=== PATIENT | female | born 1935 | race Caucasian/White ===

== ENCOUNTER 2021-08-07 14:30 | Emergency (ER) | payer MEDICARE, SELFPAY ==
--- NOTE | ~2021-08-07 | CT_ITS ---
EXAMINATION: CT HEAD WITHOUT CONTRAST CLINICAL INFORMATION: Mental status change COMPARISON: None TECHNIQUE: Contiguous axial imaging was performed from the skull base to vertex without intravenous administration of contrast. This CT examination was performed using dose optimization techniques as appropriate, variously including the following: *Automated exposure control *Adjustment of mA and/or kV according to patient size (this includes techniques or standardized protocols for targeted exams where dose is matched to indication/reason for exam; i.e. extremities or head) *Use of iterative reconstruction technique DLP: 570 mGy-cm FINDINGS: There is no evidence of an extra-axial collection. There is no evidence of intra-axial or extra-axial hemorrhage. The ventricles and extra-axial CSF spaces are prominent suggestive of generalized atrophy. There is nonspecific periventricular white matter disease. There are bilateral basal ganglia pulmonary infarcts. No previous exams are available for comparison these are of indeterminate age. No mass or mass effect is seen. Review of bone windows is normal. No skull fracture is seen. Visualized paranasal sinuses, mastoid air cells and middle ears are clear. CT/CT head/brain wo con IMPRESSION: Generalized atrophy and nonspecific periventricular white matter disease. Bilateral basal ganglia lacunar infarcts.
--- NOTE | ~2021-08-07 | XR_ITS ---
EXAMINATION: XR CHEST CLINICAL INFORMATION: Mental status change COMPARISON: None TECHNIQUE: 2 views of the chest were obtained. FINDINGS: The cardiac silhouette is enlarged. 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 Hilar and mediastinal contours are unremarkable. There is question of a 5 mm retrosternal nodule seen on the lateral view. The lungs are otherwise clear. There is no pleural effusion or pneumothorax. There are degenerative changes of the spine. There may be old posterior left seventh and eighth rib fractures. There are surgical clips projecting over the right axilla. XR/XR chest 2V IMPRESSION: Enlarged cardiac silhouette. Question 5 mm retrosternal pulmonary nodule seen on the lateral view.
--- NOTE | 2021-08-07 14:34 | PC.NURSE ---
Contact made by Selene at [facility] in [place] [phone], Pt was medicated with 2.5mg Zyprexa and Ativan, Bendryl, Haldol Gel prior to departure of home by minesweeping officer Reason to send to [facility], is to evaluate competency because she has been refusing all help at home by aids/staff/ and Meds Per Selene, Pt is on section 12 even though she is not SI/HI, 12 signed by hospice medical direal Pastor Pena DR.
[2021-08-07 14:38] VITALS: BP 161/97; PULSE 97; RESP 18; TEMP 36.6; O2SAT 96; BMI 18.8
--- NOTE | 2021-08-07 15:07 | ECG_ITS ---
Test Reason : FAILURE TO THRIVE Blood Pressure : / mmHG Vent. Rate : 082 BPM Atrial Rate : 000 BPM P-R Int : 000 ms QRS Dur : 114 ms QT Int : 400 ms P-R-T Axes : 000 088 241 degrees QTc Int : 467 ms Atrial fibrillation Incomplete right bundle branch block Septal infarct , age undetermined ST & T wave abnormality, consider inferior ischemia ST & T wave abnormality, consider anterolateral ischemia Abnormal ECG No previous ECGs available Referred By: Zoltan Tay Electronically Signed By:SAMANTHA CUELLO
--- NOTE | 2021-08-07 15:10 | ED_ITS ---
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 She has been incontinent of both stool and urine and has not let caregivers changer or clean her. She has also been refusing medications for several weeks. She is on hospice for breast cancer, apparently untreatable. She has been on hospice for the past 9 months. Today she was sent to the emergency department with a request for geriatric psych consultation and possibly hospitalization for stabilization and medication changes to allow her to return home and be cared for appropriately. No other recent health status changes that she knows of. The patient herself states she is unsure why she is here. She adamantly states that she is able to take care of herself and has been maintaining hygiene and is able to ambulate and get to the bathroom without difficulty. This is apparently not accurate. She states the reason she does not want them to clean her is because she has known him for years and does not want them seeing her private parts. She is unable to state why she is refusing to take her medications. She does not know for how long she has been refusing medications. Of note, they were able to sprinkle Zyprexa on a bagel which he ate prior to coming to the emergency department. <Zoltan Tay MD - Last Filed: 08/07/21 17:17> Related Data Home medications: Home Medications Medication Instructions Recorded Confirmed acetaminophen 650 mg rectal 650 mg MS Q6H PRN 08/09/21 08/09/21 suppository atropine 1 % eye drops 1 drp PO Q4H PRN 08/09/21 08/09/21 betaxolol 0.5 % eye drops 1 drp OPHTHALMIC-RIGHT BID 08/09/21 08/09/21 bisacodyl 10 mg rectal suppository 10 mg MS DAILY PRN 08/09/21 08/09/21 carboxymethylcellulose sodium 1 % 1 drp OPHTHALMIC (EYE) BEDTIME 08/09/21 08/09/21 eye liquid gel drops dorzolamide 2 % eye drops 1 drp OPHTHALMIC-RIGHT BID 08/09/21 08/09/21 haloperidol lactate 2 mg/mL oral 1 mg PO Q6H PRN 08/09/21 08/09/21 concentrate hydromorphone 1 mg/mL oral liquid 0.5 mg PO Q3H PRN 08/09/21 08/09/21 (Dilaudid) hyoscyamine sulfate 0.125 mg 0.125 mg PO Q4H PRN 08/09/21 08/09/21 sublingual tablet latanoprost 0.005 % eye drops 1 drp OPHTHALMIC-RIGHT BEDTIME 08/09/21 08/09/21 lorazepam 2 mg/mL oral concentrate 0.5 mg PO Q4H PRN 08/09/21 08/09/21 (Lorazepam Intensol) nitroglycerin 0.4 mg sublingual 0.4 mg SUBLINGUAL Q5M PRN 08/09/21 08/09/21 tablet olanzapine 5 mg tablet 5 mg PO DAILY 08/09/21 08/09/21 prochlorperazine maleate 10 mg 10 mg PO Q6H PRN 08/09/21 08/09/21 tablet sennosides 8.6 mg tablet (senna) 8.6 mg PO DAILY PRN 08/09/21 08/09/21 timolol maleate 0.5 % eye drops 1 drp OPHTHALMIC-RIGHT BID 08/09/21 08/09/21 <Zoltan Tay MD - Last Filed: 08/07/21 17:17> Allergies/adverse reactions: Allergies Allergy/AdvReac Type Severity Reaction Status Date / Time acetaminophen [From Percocet] Allergy Unknown Unknown Unverified 08/09/21 11:36 betaxolol [From Betoptic] Allergy Unknown Unknown Unverified 08/09/21 11:36 codeine Allergy Unknown Unknown Unverified 08/09/21 11:36 latex Allergy Unknown Unknown Unverified 08/09/21 11:36 Macrolide Antibiotics Allergy Unknown Unknown Unverified 08/09/21 11:36 nitrofurantoin Allergy Unknown Unknown Unverified 08/09/21 11:36 oxycodone [From Percocet] Allergy Unknown Unknown Unverified 08/09/21 11:36 Penicillins Allergy Unknown Unknown Unverified 08/09/21 11:36 Sulfa (Sulfonamide Allergy Unknown Unknown Unverified 08/09/21 11:36 Antibiotics) travoprost Allergy Unknown Unknown Unverified 08/09/21 11:36 <Zoltan Tay MD - Last Filed: 08/07/21 17:17> Review of Systems Constitutional: Comments: Patient denies any recent fevers <Zoltan Tay MD - Last Filed: 08/07/21 17:17> Cardiovascular: Comments: She denies chest pain <Zoltan Tay MD - Last Filed: 08/07/21 17:17> Respiratory: Comments: She denies cough and dyspnea <Zoltan Tay MD - Last Filed: 08/07/21 17:17> Gastrointestinal: Comments: No abdominal pain <Zoltan Tay MD - Last Filed: 08/07/21 17:17> Musculoskeletal: Comments: She denies limb pain <Zoltan Tay MD - Last Filed: 08/07/21 17:17> [facility] Social History Social History: Social History Advance Directives: Yes Advance Directives Information Provided: No Advance Directives on File: No Healthcare Proxy: Yes Guardian: No <Zoltan Tay MD - Last Filed: 08/07/21 17:17> Physical Exam Vital Signs: Vital Signs: Last Vital Signs Temp 97.1 F 08/09/21 07:55 Pulse 98 08/09/21 10:46 Resp 16 08/09/21 10:46 BP 123/58 L 08/09/21 10:46 Pulse Ox 98 08/09/21 10:46 BMI result Body Mass Index 18.8 <Zoltan Tay MD - Last Filed: 08/07/21 17:17> Vital Signs: Last Vital Signs Temp 97.1 F 08/09/21 07:55 Pulse 98 08/09/21 10:46 Resp 16 08/09/21 10:46 BP 123/58 L 08/09/21 10:46 Pulse Ox 98 08/09/21 10:46 BMI result Body Mass Index 18.8 <JADE Vasquez - Last Filed: 08/08/21 19:32> Const: Other: Awake in no acute distress. Not oriented to place or situation or time. <Zoltan Tay MD - Last Filed: 08/07/21 17:17> HENMT: Other: Normocephalic atraumatic <Zoltan Tay MD - Last Filed: 08/07/21 17:17> Neck: Other: No meningismus. Full range of motion. <Zoltan Tay MD - Last Filed: 08/07/21 17:17> Resp: Other: Clear and equal bilaterally without respiratory distress <Zoltan Tay MD - Last Filed: 08/07/21 17:17> Cardio: Other: Regular rate and rhythm without murmurs rubs or gallops <Zoltan Tay MD - Last Filed: 08/07/21 17:17> GI: Other: Soft nontender nondistended <Zoltan Tay MD - Last Filed: 08/07/21 17:17> Skin: Other: Warm pink and dry <Zoltan Tay MD - Last Filed: 08/07/21 17:17> Neuro: Other: Moves all 4 extremities equally <Zoltan Tay MD - Last Filed: 08/07/21 17:17> Course Course Course Narrative: Patient with terminal cancer on hospice service. They were unable to care for at home because she is refusing care. Will do workup for potential medical causes of mental status change including, Urinary tract infection Metastases of the brain Electrolyte imbalance Liver failure 5:15 p.m.. So far workup in the emergency department shows CBC with a white count of 12.1, otherwise unremarkable. D-dimer is 482, which is correct. Chemistries are unremarkable. As are LFTs, ammonia, TSH and lipase. Glucose is 101 COVID test is negative Head CT and chest x-ray without acute abnormalities no cause mental status change. Await urinalysis EKG shows atrial fibrillation which is rate controlled and diffuse ST depressions. Patient without chest pain, <Zoltan Tay MD - Last Filed: 08/07/21 17:17> Reevaluation(s) Reevaluation #1: Patient seen by psychiatrist Dr. Barron who recommends patient be inpatient for medication stabilization. Physician observation continued. Patient vital signs stable. Patient not in distress <JADE Vasquez - Last Filed: 08/08/21 19:32> Time: 19:32 <JADE Vasquez - Last Filed: 08/08/21 19:32> Medical Decision Making Lab Data Result diagrams: : 08/07/21 16:05 08/07/21 16:05 <Zoltan Tay MD - Last Filed: 08/07/21 17:17> Labs: Lab Results 08/07/21 08/07/21 08/07/21 Range/Units 16:05 16:05 16:05 WBC 12.1 H (4.8-10.8) X10*3/uL RBC 5.12 (4.20-5.50) X10*6/uL Hgb 15.3 (12.0-16.0) g/dl Hct 47.6 H (37.0-47.0) % MCV 93.0 (80.0-98.0) fL MCH 29.9 (27.0-33.0) pg MCHC 32.1 (31.0-35.0) g/dl RDW 15.0 (11.0-16.0) % Plt Count 318 (160-400) X10*3/uL MPV 10.0 (9.4-12.3) fL Immature Gran % (Auto) 0.9 H (0.0-0.4) % Neut % (Auto) 77.9 H (45-73) % Lymph % (Auto) 9.6 L (20-40) % Crenshaw % (Auto) 9.9 (2-11) % Eos % (Auto) 1.1 (0-4) % Baso % (Auto) 0.6 (0-2) % Lymph # (Auto) 1.2 (1.2-4.9) X10*3/uL Crenshaw # (Auto) 1.2 (0.1-1.2) X10*3/uL Eos # (Auto) 0.1 (0.0-0.4) X10*3/uL Baso # (Auto) 0.1 (0.0-0.2) X10*3/uL Abs Immat Gran (auto) 0.11 H (0.00-0.03) X10*3/uL Absolute Neuts (auto) 9.5 H (2.0-8.3) x10*3/uL Absolute Nucleated RBC 0.000 (0.0-0.012) X10*3/uL Nucleated RBC % (auto) 0.0 (0.0-0.2) /100WBC PT (9.9-13.0) SEC INR (0.9-1.1) D-Dimer High Sensitivty NG/ML Sodium 142 (135-145) mmol/L Potassium 4.0 (3.3-5.1) mmol/L Chloride 103 (96-108) mmol/L Carbon Dioxide 30 H (22-29) mmol/L Anion Gap 13 (12-20) BUN 6 L (9-16) mg/dL Creatinine 0.69 (0.5-1.4) mg/dL Estim Creat Clear Calc 51.2 Estimated GFR > 60 Random Glucose 101 (60-115) mg/dL Lactic Acid (0.5-2.0) mmol/L Calcium 11.3 H (8.4-10.2) mg/dL Total Bilirubin 0.9 (0.0-1.0) mg/dL AST 26 (5-31) U/L ALT 11 (0-31) U/L Alkaline Phosphatase 76 (39-117) U/L Ammonia 25 (13-55) umol/L Total Protein 6.9 (6.5-8.0) g/dL Albumin 3.7 (3.5-5.0) g/dL Lipase 17 (8-78) U/L TSH 2.11 (0.32-4.0) uIU/mL Urine Color Urine Appearance Urine pH (5.0-8.0) Ur Specific Tilly (1.005-1.025) Urine Protein (NEG-TRACE) MG/DL Urine Glucose (UA) (NEG) MG/DL Urine Ketones (NEG) MG/DL Urine Blood (NEG) Urine Nitrite (NEG) Ur Leukocyte Esterase (NEG) COVID-19 (KIRAN) (Negative) COVID-19 Clin Com 08/07/21 08/07/21 08/07/21 Range/Units 16:05 16:05 16:05 WBC (4.8-10.8) X10*3/uL RBC (4.20-5.50) X10*6/uL Hgb (12.0-16.0) g/dl Hct (37.0-47.0) % MCV (80.0-98.0) fL MCH (27.0-33.0) pg MCHC (31.0-35.0) g/dl RDW (11.0-16.0) % Plt Count (160-400) X10*3/uL MPV (9.4-12.3) fL Immature Gran % (Auto) (0.0-0.4) % Neut % (Auto) (45-73) % Lymph % (Auto) (20-40) % Crenshaw % (Auto) (2-11) % Eos % (Auto) (0-4) % Baso % (Auto) (0-2) % Lymph # (Auto) (1.2-4.9) X10*3/uL Crenshaw # (Auto) (0.1-1.2) X10*3/uL Eos # (Auto) (0.0-0.4) X10*3/uL Baso # (Auto) (0.0-0.2) X10*3/uL Abs Immat Gran (auto) (0.00-0.03) X10*3/uL Absolute Neuts (auto) (2.0-8.3) x10*3/uL Absolute Nucleated RBC (0.0-0.012) X10*3/uL Nucleated RBC % (auto) (0.0-0.2) /100WBC PT 12.7 (9.9-13.0) SEC INR 1.1 (0.9-1.1) D-Dimer High Sensitivty 482 NG/ML Sodium (135-145) mmol/L Potassium (3.3-5.1) mmol/L Chloride (96-108) mmol/L Carbon Dioxide (22-29) mmol/L Anion Gap (12-20) BUN (9-16) mg/dL Creatinine (0.5-1.4) mg/dL Estim Creat Clear Calc Estimated GFR Random Glucose (60-115) mg/dL Lactic Acid 1.3 (0.5-2.0) mmol/L Calcium (8.4-10.2) mg/dL Total Bilirubin (0.0-1.0) mg/dL AST (5-31) U/L ALT (0-31) U/L Alkaline Phosphatase (39-117) U/L Ammonia (13-55) umol/L Total Protein (6.5-8.0) g/dL Albumin (3.5-5.0) g/dL Lipase Cancelled (8-78) U/L TSH Cancelled (0.32-4.0) uIU/mL Urine Color Urine Appearance Urine pH (5.0-8.0) Ur Specific Tilly (1.005-1.025) Urine Protein (NEG-TRACE) MG/DL Urine Glucose (UA) (NEG) MG/DL Urine Ketones (NEG) MG/DL Urine Blood (NEG) Urine Nitrite (NEG) Ur Leukocyte Esterase (NEG) COVID-19 (KIRAN) (Negative) COVID-19 Clin Com 08/07/21 08/07/21 Range/Units 16:05 18:51 WBC (4.8-10.8) X10*3/uL RBC (4.20-5.50) X10*6/uL Hgb (12.0-16.0) g/dl Hct (37.0-47.0) % MCV (80.0-98.0) fL MCH (27.0-33.0) pg MCHC (31.0-35.0) g/dl RDW (11.0-16.0) % Plt Count (160-400) X10*3/uL MPV (9.4-12.3) fL Immature Gran % (Auto) (0.0-0.4) % Neut % (Auto) (45-73) % Lymph % (Auto) (20-40) % Crenshaw % (Auto) (2-11) % Eos % (Auto) (0-4) % Baso % (Auto) (0-2) % Lymph # (Auto) (1.2-4.9) X10*3/uL Crenshaw # (Auto) (0.1-1.2) X10*3/uL Eos # (Auto) (0.0-0.4) X10*3/uL Baso # (Auto) (0.0-0.2) X10*3/uL Abs Immat Gran (auto) (0.00-0.03) X10*3/uL Absolute Neuts (auto) (2.0-8.3) x10*3/uL Absolute Nucleated RBC (0.0-0.012) X10*3/uL Nucleated RBC % (auto) (0.0-0.2) /100WBC PT (9.9-13.0) SEC INR (0.9-1.1) D-Dimer High Sensitivty NG/ML Sodium (135-145) mmol/L Potassium (3.3-5.1) mmol/L Chloride (96-108) mmol/L Carbon Dioxide (22-29) mmol/L Anion Gap (12-20) BUN (9-16) mg/dL Creatinine (0.5-1.4) mg/dL Estim Creat Clear Calc Estimated GFR Random Glucose (60-115) mg/dL Lactic Acid (0.5-2.0) mmol/L Calcium (8.4-10.2) mg/dL Total Bilirubin (0.0-1.0) mg/dL AST (5-31) U/L ALT (0-31) U/L Alkaline Phosphatase (39-117) U/L Ammonia (13-55) umol/L Total Protein (6.5-8.0) g/dL Albumin (3.5-5.0) g/dL Lipase (8-78) U/L TSH (0.32-4.0) uIU/mL Urine Color YELLOW Urine Appearance CLEAR Urine pH 6.0 (5.0-8.0) Ur Specific Tilly 1.015 (1.005-1.025) Urine Protein NEG (NEG-TRACE) MG/DL Urine Glucose (UA) NEG (NEG) MG/DL Urine Ketones NEG (NEG) MG/DL Urine Blood NEG (NEG) Urine Nitrite NEG (NEG) Ur Leukocyte Esterase NEG (NEG) COVID-19 (KIRAN) Negative (Negative) COVID-19 Clin Com See Note <Zoltan Tay MD - Last Filed: 08/07/21 17:17> Lab Results 08/07/21 08/07/21 08/07/21 Range/Units 16:05 16:05 16:05 WBC 12.1 H (4.8-10.8) X10*3/uL RBC 5.12 (4.20-5.50) X10*6/uL Hgb 15.3 (12.0-16.0) g/dl Hct 47.6 H (37.0-47.0) % MCV 93.0 (80.0-98.0) fL MCH 29.9 (27.0-33.0) pg MCHC 32.1 (31.0-35.0) g/dl RDW 15.0 (11.0-16.0) % Plt Count 318 (160-400) X10*3/uL MPV 10.0 (9.4-12.3) fL Immature Gran % (Auto) 0.9 H (0.0-0.4) % Neut % (Auto) 77.9 H (45-73) % Lymph % (Auto) 9.6 L (20-40) % Crenshaw % (Auto) 9.9 (2-11) % Eos % (Auto) 1.1 (0-4) % Baso % (Auto) 0.6 (0-2) % Lymph # (Auto) 1.2 (1.2-4.9) X10*3/uL Crenshaw # (Auto) 1.2 (0.1-1.2) X10*3/uL Eos # (Auto) 0.1 (0.0-0.4) X10*3/uL Baso # (Auto) 0.1 (0.0-0.2) X10*3/uL Abs Immat Gran (auto) 0.11 H (0.00-0.03) X10*3/uL Absolute Neuts (auto) 9.5 H (2.0-8.3) x10*3/uL Absolute Nucleated RBC 0.000 (0.0-0.012) X10*3/uL Nucleated RBC % (auto) 0.0 (0.0-0.2) /100WBC PT (9.9-13.0) SEC INR (0.9-1.1) D-Dimer High Sensitivty NG/ML Sodium 142 (135-145) mmol/L Potassium 4.0 (3.3-5.1) mmol/L Chloride 103 (96-108) mmol/L Carbon Dioxide 30 H (22-29) mmol/L Anion Gap 13 (12-20) BUN 6 L (9-16) mg/dL Creatinine 0.69 (0.5-1.4) mg/dL Estim Creat Clear Calc 51.2 Estimated GFR > 60 Random Glucose 101 (60-115) mg/dL Lactic Acid (0.5-2.0) mmol/L Calcium 11.3 H (8.4-10.2) mg/dL Total Bilirubin 0.9 (0.0-1.0) mg/dL AST 26 (5-31) U/L ALT 11 (0-31) U/L Alkaline Phosphatase 76 (39-117) U/L Ammonia 25 (13-55) umol/L Total Protein 6.9 (6.5-8.0) g/dL Albumin 3.7 (3.5-5.0) g/dL Lipase 17 (8-78) U/L TSH 2.11 (0.32-4.0) uIU/mL Urine Color Urine Appearance Urine pH (5.0-8.0) Ur Specific Tilly (1.005-1.025) Urine Protein (NEG-TRACE) MG/DL Urine Glucose (UA) (NEG) MG/DL Urine Ketones (NEG) MG/DL Urine Blood (NEG) Urine Nitrite (NEG) Ur Leukocyte Esterase (NEG) COVID-19 (KIRAN) (Negative) COVID-19 Clin Com 08/07/21 08/07/21 08/07/21 Range/Units 16:05 16:05 16:05 WBC (4.8-10.8) X10*3/uL RBC (4.20-5.50) X10*6/uL Hgb (12.0-16.0) g/dl Hct (37.0-47.0) % MCV (80.0-98.0) fL MCH (27.0-33.0) pg MCHC (31.0-35.0) g/dl RDW (11.0-16.0) % Plt Count (160-400) X10*3/uL MPV (9.4-12.3) fL Immature Gran % (Auto) (0.0-0.4) % Neut % (Auto) (45-73) % Lymph % (Auto) (20-40) % Crenshaw % (Auto) (2-11) % Eos % (Auto) (0-4) % Baso % (Auto) (0-2) % Lymph # (Auto) (1.2-4.9) X10*3/uL Crenshaw # (Auto) (0.1-1.2) X10*3/uL Eos # (Auto) (0.0-0.4) X10*3/uL Baso # (Auto) (0.0-0.2) X10*3/uL Abs Immat Gran (auto) (0.00-0.03) X10*3/uL Absolute Neuts (auto) (2.0-8.3) x10*3/uL Absolute Nucleated RBC (0.0-0.012) X10*3/uL Nucleated RBC % (auto) (0.0-0.2) /100WBC PT 12.7 (9.9-13.0) SEC INR 1.1 (0.9-1.1) D-Dimer High Sensitivty 482 NG/ML Sodium (135-145) mmol/L Potassium (3.3-5.1) mmol/L Chloride (96-108) mmol/L Carbon Dioxide (22-29) mmol/L Anion Gap (12-20) BUN (9-16) mg/dL Creatinine (0.5-1.4) mg/dL Estim Creat Clear Calc Estimated GFR Random Glucose (60-115) mg/dL Lactic Acid 1.3 (0.5-2.0) mmol/L Calcium (8.4-10.2) mg/dL Total Bilirubin (0.0-1.0) mg/dL AST (5-31) U/L ALT (0-31) U/L Alkaline Phosphatase (39-117) U/L Ammonia (13-55) umol/L Total Protein (6.5-8.0) g/dL Albumin (3.5-5.0) g/dL Lipase Cancelled (8-78) U/L TSH Cancelled (0.32-4.0) uIU/mL Urine Color Urine Appearance Urine pH (5.0-8.0) Ur Specific Tilly (1.005-1.025) Urine Protein (NEG-TRACE) MG/DL Urine Glucose (UA) (NEG) MG/DL Urine Ketones (NEG) MG/DL Urine Blood (NEG) Urine Nitrite (NEG) Ur Leukocyte Esterase (NEG) COVID-19 (KIRAN) (Negative) COVID-19 Clin Com 08/07/21 08/07/21 Range/Units 16:05 18:51 WBC (4.8-10.8) X10*3/uL RBC (4.20-5.50) X10*6/uL Hgb (12.0-16.0) g/dl Hct (37.0-47.0) % MCV (80.0-98.0) fL MCH (27.0-33.0) pg MCHC (31.0-35.0) g/dl RDW (11.0-16.0) % Plt Count (160-400) X10*3/uL MPV (9.4-12.3) fL Immature Gran % (Auto) (0.0-0.4) % Neut % (Auto) (45-73) % Lymph % (Auto) (20-40) % Crenshaw % (Auto) (2-11) % Eos % (Auto) (0-4) % Baso % (Auto) (0-2) % Lymph # (Auto) (1.2-4.9) X10*3/uL Crenshaw # (Auto) (0.1-1.2) X10*3/uL Eos # (Auto) (0.0-0.4) X10*3/uL Baso # (Auto) (0.0-0.2) X10*3/uL Abs Immat Gran (auto) (0.00-0.03) X10*3/uL Absolute Neuts (auto) (2.0-8.3) x10*3/uL Absolute Nucleated RBC (0.0-0.012) X10*3/uL Nucleated RBC % (auto) (0.0-0.2) /100WBC PT (9.9-13.0) SEC INR (0.9-1.1) D-Dimer High Sensitivty NG/ML Sodium (135-145) mmol/L Potassium (3.3-5.1) mmol/L Chloride (96-108) mmol/L Carbon Dioxide (22-29) mmol/L Anion Gap (12-20) BUN (9-16) mg/dL Creatinine (0.5-1.4) mg/dL Estim Creat Clear Calc Estimated GFR Random Glucose (60-115) mg/dL Lactic Acid (0.5-2.0) mmol/L Calcium (8.4-10.2) mg/dL Total Bilirubin (0.0-1.0) mg/dL AST (5-31) U/L ALT (0-31) U/L Alkaline Phosphatase (39-117) U/L Ammonia (13-55) umol/L Total Protein (6.5-8.0) g/dL Albumin (3.5-5.0) g/dL Lipase (8-78) U/L TSH (0.32-4.0) uIU/mL Urine Color YELLOW Urine Appearance CLEAR Urine pH 6.0 (5.0-8.0) Ur Specific Tilly 1.015 (1.005-1.025) Urine Protein NEG (NEG-TRACE) MG/DL Urine Glucose (UA) NEG (NEG) MG/DL Urine Ketones NEG (NEG) MG/DL Urine Blood NEG (NEG) Urine Nitrite NEG (NEG) Ur Leukocyte Esterase NEG (NEG) COVID-19 (KIRAN) Negative (Negative) COVID-19 Clin Com See Note <JADE Vasquez - Last Filed: 08/08/21 19:32>
[2021-08-07] MEDS: 0.9 % Sodium Chloride 500 ML IV (16:11)
[2021-08-07 16:14] LABS: MANUAL DIFF FLAG NO
[2021-08-07 16:15] LABS: Basophils Absolute Auto 0.1 X10*3/uL (0.0-0.2); Basophils Percent Auto 0.6 % (0-2); Eosinophils Absolute Auto 0.1 X10*3/uL (0.0-0.4); Eosinophils Percent Auto 1.1 % (0-4); Hematocrit 47.6 % (37.0-47.0); Hemoglobin 15.3 g/dl (12.0-16.0); Imm Gran Abs Auto 0.11 X10*3/uL (0.00-0.03); Imm Gran Pct Auto 0.9 % (0.0-0.4); Lymphocytes Absolute Auto 1.2 X10*3/uL (1.2-4.9); Lymphocytes Percent Auto 9.6 % (20-40); Mean Corpuscular HGB Conc 32.1 g/dl (31.0-35.0); Mean Corpuscular Hemoglobin 29.9 pg (27.0-33.0); Monocytes Absolute Auto 1.2 X10*3/uL (0.1-1.2); Monocytes Percent Auto 9.9 % (2-11); Neutrophils Absolute Auto 9.5 x10*3/uL (2.0-8.3); Neutrophils Percent Auto 77.9 % (45-73); Platelet Count 318 X10*3/uL (160-400); Red Blood Count 5.12 X10*6/uL (4.20-5.50); White Blood Count 12.1 X10*3/uL (4.8-10.8)
[2021-08-07 16:23] LABS: INTERNATIONAL NORM RATIO 1.1 (0.9-1.1); Prothrombin Time 12.7 SEC (9.9-13.0)
[2021-08-07 16:24] LABS: Ammonia 25 umol/L (13-55)
[2021-08-07 16:26] LABS: D Dimer High Sensitivity 482 NG/ML
[2021-08-07 16:29] LABS: Lactic Acid 1.3 mmol/L (0.5-2.0)
[2021-08-07 16:30] LABS: COVID-19 Test Negative (Negative); IDNOW Serial# 9DD0AD1C
[2021-08-07 16:36] LABS: Alanine Aminotransferase 11 U/L (0-31); Albumin Level 3.7 g/dL (3.5-5.0); Alkaline Phosphatase 76 U/L (39-117); Anion Gap 13 (12-20); Aspartate Amino Transferase 26 U/L (5-31); Bilirubin Total 0.9 mg/dL (0.0-1.0); Blood Urea Nitrogen 6 mg/dL (9-16); Calcium 11.3 mg/dL (8.4-10.2); Carbon Dioxide 30 mmol/L (22-29); Chloride 103 mmol/L (96-108); Creatinine Clr Calc Pharmacy 51.2; Estimated Glomerular Filt Rate > 60; Glucose Random 101 mg/dL (60-115); Lipase 17 U/L (8-78); Sodium 142 mmol/L (135-145); Total Protein 6.9 g/dL (6.5-8.0)
[2021-08-07 16:55] LABS: TSH reflex Free T4 2.11 uIU/mL (0.32-4.0)
[2021-08-07 17:15] VITALS: BP 169/90; PULSE 86; RESP 18; TEMP 36.9; O2SAT 96
[2021-08-07 18:56] LABS: Appearance Urine CLEAR; Color Urine YELLOW; Glucose Urine UA NEG (NEG); Leukocyte Esterase Urine NEG (NEG); Nitrite Urine NEG (NEG); Specific Gravity - Urine 1.015 (1.005-1.025); Urine Blood NEG (NEG); Urine Ketones NEG (NEG); Urine Protein NEG (NEG-TRACE)
--- NOTE | 2021-08-07 20:01 | MHC.CARE ---
CARE TEAM met with pt in ED 22 due to arriving from her home. She is reported to be on hospice for breast cancer for about nine months; and is refusing all care and medications for several weeks. She is reported to be incontinent of both stool and urine, not allowing caregivers to change or clean her. Pt reported she does not know why she is in the ED. She explained several men arrived to her home and told her she had to come to the ED. She discussed there are ?colored? workers in her home and she does not feel comfortable with them caring for her. She stated ?they want to wash me and I don?t want them to. It is my body and my house. I don?t want them there?. She reported she has not been complaint with medications for a week due to not trusting the workers. She advocated to be discharged as she reported she does not feel safe in the hospital. Pt is an 85 year old, female who appears her stated age. She reports she is anxious due to being in ED; affect is congruent. Speech is clear. Insight, judgment appear to be poor as pt reports she does not want her caregivers caring for her. Impulse control is fair. She is thin and ADL?s seem unkempt; she is observed with unkept nails. Thought content is focused on removing her workers from her home; thought process is delusional as she reports she is able to care for herself. Pt resides alone and has multiple care givers. She reports she does not know her current caregivers and does not want them to take care of her. Dr. Tay is questioning the benefit of [facility] psychiatric admission and is requesting pt be assessed by psych to determine appropriate level of care needed. Pt will remain in ED awaiting assessment. CARE TEAM attempted to contact son Darci Danielle [phone]. Unable to leave message/mailbox full.
[2021-08-07 21:29] VITALS: PULSE 89; RESP 18
--- NOTE | 2021-08-08 08:22 | PC.NURSE ---
Pt received from shift superintendent: Pt AOX2-3, mainly sleeping upon arrival this morning. Heart sounds normal and lungs diminished. Pt abd flat and non-tender. Pending case management for placement. Call received this morning from pt's nursing home assistant administrator. Update given.
[2021-08-08 10:00] VITALS: BP 134/65; PULSE 65; RESP 16; TEMP 36.3; O2SAT 95
--- NOTE | 2021-08-08 11:02 | PC.NURSE ---
Pt update status given to pt's brother in law Jh, who is also healthcare proxy: [phone]
--- NOTE | 2021-08-08 14:27 | MHC.CM.ED ---
Patient was at home under [facility]. Patient lives in [place]. Patient came to [facility] under a section 12.Patient was seen by Care Team and cleared from needing inpatient psych. At his point, case management consult was ordered. T/W spoke with Selene at [facility]. Patient was brought to [facility] to be evaluated for inpatient nik psych. Patient has been refusing medication and assistance with ADL's. Patient will sit in urine and feces and refuse to allow the home care specialist to change her. She has also been refusing medication. Per Selene, their TIBCO DEVELOPER tried to go to patient's home to determine if she has the capacity to make her own decisions. Patient refused to speak to TIBCO DEVELOPER. Psych consult was ordered. Patient was seen by Dr Barron and found to be inpatient psych appropriate. Case management has signed off this case and transferred to Care team at this time.
--- NOTE | 2021-08-08 16:51 | P.CNPS_ITS ---
History of Present Illness Date of Service: 08/08/2021 Chief Complaint: SECTION 12,FAILURE TO THRIVE PER EMS Reason for Consult: decision-making capacity HPI Narrative: per ED MD draft note from yesterday: For hospice, patient has been refusing all care for the past 3-4 days including hygiene.? She has been incontinent of both stool and urine and has not let caregivers changer or clean her.? She has also been refusing medications for several weeks.? She is on hospice for breast cancer, apparently untreatable.? She has been on hospice for the past 9 months.? Today she was sent to the emergency department with a request for geriatric p sych consultation and possibly hospitalization for stabilization and medication changes to allow her to return home and be cared for appropriately.? No other recent health status changes that she knows of.? The patient herself states she is unsure why she is here.? She adamantly states that she is able to take care of herself and has been maintaining hygiene and is able to ambulate and get to the bathroom without difficulty.? This is apparently not accurate.? She states the reason she does not want them to clean her is because she has known him for years and does not want them seeing her private parts.? She is unable to state why she is refusing to take her medications.? She does not know for how long she has been refusing medications.? Of note, they were able to sprinkle Robert on a bagel which he ate prior to coming to the emergency department. this machine sign writer introduced himself to pt and explained the reason for his visit. pt appeared to appreciate the import of the interview. she was not oriented to place, saying she believed she was on a TV set. even with more chances and some prodding, she did not identify her environment as a hospital. she was informed that she was in [facility]. she was able to identify the year as 2021, although she was unsure, and she reported the month to be september. she was informed that it is in fact 2021 and that the month is august. 5-10 after being informed of those pieces of information she was able to recall that she was at [facility] but she was unable to identify the year or the month. her main complaint was regarding the staff who take care of her at her home hospice arrangement - she was unable to say she was in hospice. she does not feel comfortable with them and she does not trust them. she states she will not take medications from them because she does not know their credentials or trust that they know what they are doing. she states she will not allow them to care for her physically because she has sovereign control over her person and she may refuse anyone to touch her at her preference and discretion. it appeared she finds the caregivers distasteful and beneath her. that said, her level of par anoia about their identities, qualifications, and actions (she asserted at one point that they, the persons who attend to her physical needs at her home, may have been responsible for installing themselves as her caregivers) was very far out of proportion to any reasonable concerns or suspicions. she also asserted that she is able to care for herself physically, which is not the case, and if she needed any help she could call a friend over to help her anyway. she had no insight into her limitations, cognitively or physically. her orientation was impaired, and her short term memory as well. she believably denied any safety concerns, saying she enjoys life and wants to visit with friends. she denied HI/AVH. she denied any confusing experiences or feeling like her mind is playing tricks on her. Medical Evaluation Reviewed: Yes Diagnostics Vital Signs (24Hr): Vital Signs - 24 hr 08/07/21 17:15 08/07/21 21:29 08/08/21 10:00 Temperature 98.4 F 97.4 F Pulse Rate 86 89 65 Respiratory Rate 18 18 16 Blood Pressure 169/90 H 134/65 Pulse Oximetry 96 95 BMI result Verdana 4 Body Mass Index Verdana 4 18.8 Verdana 4 Verdana 4 Labs Results: 08/07/21 16:05 08/07/21 16:05 Labs: Laboratory Results - last 48 hr 08/07/21 08/07/21 08/07/21 16:05 16:05 16:05 WBC 12.1 H RBC 5.12 Hgb 15.3 Hct 47.6 H MCV 93.0 MCH 29.9 MCHC 32.1 RDW 15.0 Plt Count 318 MPV 10.0 Immature Gran % (Auto) 0.9 H Neut % (Auto) 77.9 H Lymph % (Auto) 9.6 L Cataño % (Auto) 9.9 Eos % (Auto) 1.1 Baso % (Auto) 0.6 Lymph # (Auto) 1.2 Cataño # (Auto) 1.2 Eos # (Auto) 0.1 Baso # (Auto) 0.1 Abs Immat Gran (auto) 0.11 H Absolute Neuts (auto) 9.5 H Absolute Nucleated RBC 0.000 Nucleated RBC % (auto) 0.0 PT INR D-Dimer High Sensitivty Sodium 142 Potassium 4.0 Chloride 103 Carbon Dioxide 30 H Anion Gap 13 BUN 6 L Creatinine 0.69 Estim Creat Clear Calc 51.2 Estimated GFR > 60 Random Glucose 101 Lactic Acid Calcium 11.3 H Total Bilirubin 0.9 AST 26 ALT 11 Alkaline Phosphatase 76 Ammonia 25 Total Protein 6.9 Albumin 3.7 Lipase 17 TSH 2.11 Urine Color Urine Appearance Urine pH Ur Specific Gaston Urine Protein Urine Glucose (UA) Urine Ketones Urine Blood Urine Nitrite Ur Leukocyte Esterase COVID-19 (KIRAN) [employer] 08/07/21 08/07/21 08/07/21 16:05 16:05 16:05 WBC RBC Hgb Hct MCV MCH MCHC RDW Plt Count MPV Immature Gran % (Auto) Neut % (Auto) Lymph % (Auto) Cataño % (Auto) Eos % (Auto) Baso % (Auto) Lymph # (Auto) Cataño # (Auto) Eos # (Auto) Baso # (Auto) Abs Immat Gran (auto) Absolute Neuts (auto) Absolute Nucleated RBC Nucleated RBC % (auto) PT 12.7 INR 1.1 D-Dimer High Sensitivty 482 Sodium Potassium Chloride Carbon Dioxide Anion Gap BUN Creatinine Estim Creat Clear Calc Estimated GFR Random Glucose Lactic Acid 1.3 Calcium Total Bilirubin AST ALT Alkaline Phosphatase Ammonia Total Protein Albumin Lipase Cancelled TSH Cancelled Urine Color Urine Appearance Urine pH Ur Specific Gaston Urine Protein Urine Glucose (UA) Urine Ketones Urine Blood Urine Nitrite Ur Leukocyte Esterase COVID-19 (KIRAN) [employer] 08/07/21 08/07/21 16:05 18:51 WBC RBC Hgb Hct MCV MCH MCHC RDW Plt Count MPV Immature Gran % (Auto) Neut % (Auto) Lymph % (Auto) Cataño % (Auto) Eos % (Auto) Baso % (Auto) Lymph # (Auto) Cataño # (Auto) Eos # (Auto) Baso # (Auto) Abs Immat Gran (auto) Absolute Neuts (auto) Absolute Nucleated RBC Nucleated RBC % (auto) PT INR D-Dimer High Sensitivty Sodium Potassium Chloride Carbon Dioxide Anion Gap BUN Creatinine Estim Creat Clear Calc Estimated GFR Random Glucose Lactic Acid Calcium Total Bilirubin AST ALT Alkaline Phosphatase Ammonia Total Protein Albumin Lipase TSH Urine Color YELLOW Urine Appearance CLEAR Urine pH 6.0 Ur Specific Gaston 1.015 Urine Protein NEG Urine Glucose (UA) NEG Urine Ketones NEG Urine Blood NEG Urine Nitrite NEG Ur Leukocyte Esterase NEG COVID-19 (KIRAN) Negative COVID-19 Clin Com See Note Imaging Radiology Impressions: ITS Impressions Chest X-Ray 08/07/21 15:26 IMPRESSION: Enlarged cardiac silhouette. Question 5 mm retrosternal pulmonary nodule seen on the lateral view. Head CT 08/07/21 15:27 IMPRESSION: Generalized atrophy and nonspecific periventricular white matter disease. Bilateral basal ganglia lacunar infarcts. Mental Status Exam Mental Status Exam Narrative: reclining in hospital bed in ED, dressed in [facility]. no PMA/PMR. cooperative with interview. speech nml in amount, increased in rate, nml prosody, nml latency, nml loudness. thoughts somewhat circumstantial to tangential. affect full range, somewhat more ebullient than one might expect under the circumstances, normo-intense, non-labile. mood euthymic. denies SI/HI/AVH. Medications Medications Current Medications Haloperidol Lactate (Haloperidol Lactate 5 Mg/Ml Vial) 1 mg IV Q1H PRN PRN Reason: agitation Allergies Allergies Allergy/AdvReac Type Severity Reaction Status Date / Time No Known Allergies Allergy Verified 08/07/21 14:47 Assessment & Plan Assessment & Plan (1) Cognitive disorder: Status: Acute Code(s): F09 - Unspecified mental disorder due to known physiological condition Plan pt is able to communicate a treatment choice consistently, although her decision is based on delusional thinking. she lacks insight into her own limitations, however, and she cannot reliably retain sufficient information to make informed decisions in complicated matters. it is my opinion that this patient lacks medical decision-making capacity because she is unable to retain information or appreciate her limitations. healthcare proxy should be invoked at this time. she may benefit from low-dose neuroleptic, haldol 1-2 mg periodically throughout the day if agitated or paranoid, with a slightly higher dose at bedtime (try 5 mg). she may benefit from a brief psychiatric admission for the purposes of stabilization on neuroleptic medication, which may lead her to be more accepting of medication and physical care at home hospice. I spent ___60___ minutes with the patient and/or on the patient floor today, greater than?50% of which was spent counseling/coordinating care.
--- NOTE | 2021-08-08 17:00 | PC.NURSE ---
Pt's healthcare proxy called and another update given. MD Barron made aware that family wishes to discuss plan of care with him. states to relay all discussion with ER attending.
[2021-08-09] VITALS: BP 134/65; PULSE 65; RESP 16; TEMP 36.4; O2SAT 95
[2021-08-09 02:00] VITALS: BP 161/74; PULSE 95; RESP 16; TEMP 37.9; O2SAT 95
--- NOTE | 2021-08-09 02:39 | PC.NURSE ---
Pt was dry when checked at 0230. Given two warm blankets.
--- NOTE | 2021-08-09 07:20 | PC.NURSE ---
This nurse took over patient's care at 1900. Patient incontinent of urine, skin care provided, patient repositioned with 2 assist, offers no complaints, vss. call marin within reach.
[2021-08-09 07:55] VITALS: BP 142/65; PULSE 86; RESP 16; TEMP 36.2; O2SAT 97
[2021-08-09 10:46] VITALS: BP 123/58; PULSE 98; RESP 16; O2SAT 98
--- NOTE | 2021-08-09 12:00 | PHA.MEDREC ---
Pharmacy Consult ? Medication Reconciliation Pharmacy has completed the medication reconciliation. Spoke to pt's daughter Martha ([phone]) who faxed a medication list from hospice facility. No remarkable issues. Constance Person, RulaD
--- NOTE | 2021-08-09 12:30 | PC.NURSE ---
spoke to Trniidad from care team plan for the pt to go to [facility] some times today
[2021-08-09 13:59] VITALS: BP 126/64; PULSE 100; RESP 16; O2SAT 95
[2021-08-09] MEDS: OLANZapine 5 MG TABLET PO (14:10)
--- NOTE | 2021-08-09 14:12 | PC.NURSE ---
Pt accepted med without difficulty, back to sleep with eyes closed. Cleaned for urine incontinence x2, purewick in place. Plan for s1 admit
--- NOTE | 2021-08-09 17:52 | PC.NURSE ---
Spoke to Jh (HCP and brother in law)and updated on plan (at that time admission) however admit no longer part of plan. This RN reached out to CARE team to update family and spoke to Korina who states she will reach out to clarify plan. Pt has been pleasant and compliant with meds/care. eating dinner at this time. Brief periods of confusion but also noted to have periods where pt appears lucid. Sleeping most of shift but awakes easily. Contact for Jh [phone] contact for geneva Richardson [phone]
--- NOTE | 2021-08-09 19:27 | PM.EVENT ---
Event Note Date of Service: 08/09/21 Event Note: Per Dr. Cole, Pt re-evaluated and disposition is to be discharged back to Hospice.
[2021-08-09 20:13] VITALS: BP 108/75; PULSE 109; RESP 16; TEMP 37; O2SAT 94
--- NOTE | 2021-08-09 22:11 | MHC.CARE ---
According to Dr. Cole, pt does not require an nik psych admission. Pt will best benefit from returning home to hospice. After speaking with Fozia Mike, and clarified plan, plan is for pt to remain the night and Stephanie will see pt tomorrow to start pt on a low dose of Haldol with intent to decrease behavioral disturbances at home and stabilize for hospice care. This plan was communicated with HCP & Brother in law Jh [phone]. Jh would like an update tomorrow morning if the plan is to keep her for 24 hours to monitor on new medications or d/c after Stephanie meets with her tomorrow? Jh would also like us to have a conversation with hospice and update them with plan.
[2021-08-10 01:57] VITALS: BP 93/46; PULSE 85; RESP 16; TEMP 36.2; O2SAT 94
[2021-08-10 06:27] VITALS: BP 108/69; PULSE 91; RESP 14; TEMP 36.2; O2SAT 96
[2021-08-10] MEDS: OLANZapine 5 MG TABLET PO (09:59)
[2021-08-10] MEDS: timoloL maleate 0.5 % Oph Sol 5 ML DRBTL 1 DROP EYE-RIGHT (09:59)
[2021-08-10] MEDS: Dorzolamide HCl 2 % Ophth Sol 10 ML DRPBTL 1 DROP EYE-RIGHT (09:59)
--- NOTE | 2021-08-10 12:31 | PM.PSYCN ---
History of Present Illness Date of Service: 08/10/21 Chief Complaint: SECTION 12,FAILURE TO THRIVE PER EMS Reason for Consult: medication Sources of Information: patient interviewed and chart reviewed Additional Sources of Information: Relayed info to the CARE team HPI Narrative: Pt is an 85 y.o. Woman who arrived to [facility] ED 08/07/21 from home, in hospice care for terminal breast cancer x 9 mo. Her caregivers reported she had been refusing care x 3-4 days including hygiene, med non-adherence (including olanzapine 5 mg daily), and increased agitation. Upon initial psych consult, pt adamantly stated that she is able to take care of herself with independence and has been maintaining hygiene, which is apparently not accurate. It was determined that she would benefit from a low-dose neuroleptic, haldol 1-2 mg periodically throughout the day if agitated or paranoid, with a slightly higher dose at bedtime (try 5 mg) due to delusional thinking and to help her be more accepting of hospice care. It was also determined pt lacks medical decision-making capacity because she is unable to retain information or appreciate her limitations.? Psych consult was re-placed for medication management.? I evaluated the pt this afternoon and she reports she was not complying with personal care from hospice workers because they ?were totally annoying me.? She identifies the workers as ?four or five black women? and says she felt she ?had the right to nikita them around? and that they were ?women that I knew I didnt care for.? However, pt is now more accepting of the reality that she is not independent enough to care for herself, as when asked about this she said ?I dont think I will be able to do it myself, im 85.? She also consents ?I will work with them and be nicer, definitely.? At the hospital, pt has been med adherent and says her sleep is ?great.? She denies anger or agitation. Denies anxiety. Says her mood is ?good.? She says she plans to be adherent with treatment at home, ?I?ll have to take the medication and obey the rules? and somewhat unprompted states ?Im not gonna hit you, i dont hit people.? Pt appears to have some insight into her non-compliance, as she says ?Its very embarrassing to have somebody in your vagina and its nothing you do lightly. But if you gotta do it, you gotta do it. I think i have to. You have to realize how hard it is to give somebody control, I never had this problem before.? She says she had a long talk with her son about her care and says ?I think i understand what my kids are saying. Its not worth being a jerk over.?? Diagnostics Vital Signs (24Hr): Vital Signs - 24 hr 08/09/21 13:59 08/09/21 20:13 08/10/21 01:57 Temperature 98.6 F 97.2 F Pulse Rate 100 109 H 85 Respiratory Rate 16 16 16 Blood Pressure 126/64 108/75 93/46 L Pulse Oximetry 95 94 94 08/10/21 06:27 Temperature 97.1 F Pulse Rate 91 Respiratory Rate 14 Blood Pressure 108/69 Pulse Oximetry 96 BMI result Body Mass Index 18.8 Labs Results: 08/07/21 16:05 08/07/21 16:05 Imaging Radiology Impressions: ITS Impressions Chest X-Ray 08/07/21 15:26 IMPRESSION: Enlarged cardiac silhouette. Question 5 mm retrosternal pulmonary nodule seen on the lateral view. Head CT 08/07/21 15:27 IMPRESSION: Generalized atrophy and nonspecific periventricular white matter disease. Bilateral basal ganglia lacunar infarcts. Mental Status Exam Mental Status Exam Narrative: reclining in hospital bed in ED, dressed in [facility].? no PMA/PMR.? cooperative with interview.? speech nml in amount, increased in rate, nml prosody, nml latency, nml loudness.? thoughts somewhat circumstantial to tangential.? affect full range, mood is good, normo-intense, non-labile.?affect euthymic.? denies SI/HI/AVH. Medications Medications Current Medications Artificial Tears (Artificial Tears 15 Ml Drops) 1 drop EYE-BOTH BEDTIME AKILAH Last Admin: 08/09/21 20:13 Dose: Not Given Documented by: Atropine Sulfate (Atropine Sulfate 1 % Ophth Carissa 2 Ml Bottle) 1 drop EYE-RIGHT Q4H PRN PRN Reason: Secretions Bisacodyl (Bisacodyl 10 Mg Supp.Rect) 10 mg KS DAILY PRN PRN Reason: Constipation Dorzolamide HCl (Dorzolamide Hcl 2 % Ophth Carissa 10 Ml Drpbtl) 1 drop EYE-RIGHT BID [facility] Last Admin: 08/10/21 09:59 Dose: 1 drop Documented by: Haloperidol Lactate (Haloperidol Lactate 5 Mg/Ml Vial) 1 mg IV Q1H PRN PRN Reason: agitation Haloperidol Lactate (Haloperidol Lactate 10 Mg/5 Ml Oral.Conc) 1 mg PO Q6H PRN PRN Reason: Agitation Nitroglycerin (Nitroglycerin 0.4 Mg Tab.Subl) 0.4 mg SUBLINGUAL Q5M PRN PRN Reason: Chest Pain Non-Formulary Medication (Betaxolol) 1 drop EYE-RIGHT BID [facility] Olanzapine (Olanzapine 5 Mg Tablet) 5 mg PO DAILY [facility] Last Admin: 08/10/21 09:59 Dose: 5 mg Documented by: Pharmacy Consult (Consult Rx Perform Med Rec) 1 each MISCELLANE ONCE PRN PRN Reason: Consult order Prochlorperazine Maleate (Prochlorperazine Maleate 5 Mg Tablet) 10 mg PO Q6H PRN PRN Reason: Nausea Senna (Sennosides 8.6 Mg Tablet) 8.6 mg PO DAILY PRN PRN Reason: Constipation Timolol Maleate (Timolol Maleate 0.5 % Oph Carissa 5 Ml Drbtl) 1 drop EYE-RIGHT BID [facility] Last Admin: 08/10/21 09:59 Dose: 1 drop Documented by: Allergies Allergies Allergy/AdvReac Type Severity Reaction Status Date / Time acetaminophen [From Percocet] Allergy Unknown Unknown Unverified 08/09/21 11:36 betaxolol [From Betoptic] Allergy Unknown Unknown Unverified 08/09/21 11:36 codeine Allergy Unknown Unknown Unverified 08/09/21 11:36 latex Allergy Unknown Unknown Unverified 08/09/21 11:36 Macrolide Antibiotics Allergy Unknown Unknown Unverified 08/09/21 11:36 nitrofurantoin Allergy Unknown Unknown Unverified 08/09/21 11:36 oxycodone [From Percocet] Allergy Unknown Unknown Unverified 08/09/21 11:36 Penicillins Allergy Unknown Unknown Unverified 08/09/21 11:36 Sulfa (Sulfonamide Allergy Unknown Unknown Unverified 08/09/21 11:36 Antibiotics) travoprost Allergy Unknown Unknown Unverified 08/09/21 11:36 Assessment & Plan Assessment & Plan (1) Cognitive disorder: Status: Acute Code(s): F09 - Unspecified mental disorder due to known physiological condition Plan I spoke with staff reporter, who report pt has been ?okay,? calm, cooperative, took her meds no problem, even cleaned herself and did her own eye drops this morning.? I spoke with pt?s family on a group call and they report pt has had this issue before of not adhering with care at home but complying at the hospital. However, they are willing to take her back as she has stabilized since resuming her med regimen on admission. I relayed this information to CARE team and case management. I spent minutes with the patient and/or on the patient floor today, greater than?50% of which was spent counseling/coordinating care.
--- NOTE | 2021-08-10 12:48 | PC.NURSE ---
Pt resting comfrotably, no sigs of distress, pt requesting to do self AM care and go to the bathroom. Pt is Alert to person and place, asking to go home. Psych consult completed, per Jolly from case mangement, needs covid swab and can then return home. Will continue to monitor.
[2021-08-10 13:45] LABS: COVID-19 Test Negative (Negative)
--- NOTE | 2021-08-10 14:00 | MHC.CM.ED ---
Patient's care was transferred to Care team when patient was going to inpatient nik psych. Admission was cancelled on 08/09. Patient was seen by Yosi Brown NP today. She will not be making any medication changes. Stephanie SENIOR STRATEGY MANAGER spoke to patient's HCP/brother, Jh. Jh agreeable to d/c if patient's Covid test is negative. Patient's covid swab is negative. T/W spoke with Jh and son, Darci. Darci will come to ER around 4pm to transport patient home. Patient, Alis RN and Sunita SENIOR STRATEGY MANAGER aware. [facility] hospice made aware of d/c. Continue to monitor for d/c needs.
--- NOTE | 2021-08-10 18:44 | PC.NURSE ---
Pt DC'd at 1615, unable to remove from [employer], hog killer made aware.
== END 2021-08-10 18:39 | disposition home or self-care (01) ==
PROVIDERS: Physician Assistant; Emergency Provider Emergency Medicine
DX: F09 Unspecified mental disorder due to known physiological condition (principal); R62.7 Adult failure to thrive; R15.9 Full incontinence of feces; R51.9 Headache, unspecified; R32 Unspecified urinary incontinence; I48.91 Unspecified atrial fibrillation; C50.919 Malignant neoplasm of unspecified site of unspecified female breast; Z79.899 Other long term (current) drug therapy; Z20.822 Contact with and (suspected) exposure to COVID-19
CPT/HCPCS: 70450; 71046; 80053; 81003; 82140; 83605; 83690; 84443; 85025; 85379; 85610; 87040; 87635; 93005; 96361; 96374; 99285